=== PATIENT | female | born 1970 | race Caucasian/White ===

== ENCOUNTER 2017-07-02 20:49 | Inpatient (IN) | payer OTHER ==
[~2017-07-02] VITALS: Ht 157.5 cm; Wt 62.0 kg
--- NOTE | ~2017-07-02 | CR72 ---
[facility] A Service of [facility] & [facility] RADIOLOGY TEXT RESULTS PATIENT: RONAN MCKINNEY LOCATION: [facility] [id number] : 72 UNIT #: [id number] AGE: [address]: Rey Driver MD SEX: F ORDER DR: [id number] [facility] [address]. [place], [place] [address] [id number] MR#: [id number] Acc #: [id number] NAME: RONAN MCKINNEY : 1970 SEX: F STUDY DATE/TIME: 07/03/2017 0:27 UNIT: [facility] ROOM: [facility] STUDY DESCRIPTION: CR Chest Single View Portable Attending Physician: Rey Driver M.D. Ordering Physician: Pennie Morgan M.D. Primary Care Physician: Leslye Taylor M.D. MEDICAL IMAGING REPORT This report is preliminary unless electronic signature is present EXAM Chest x-ray 07/03/2017 HISTORY 47-year-old female in the ED complaining of 2-day history of shortness of air and body aches. TECHNIQUE AP portable upright chest x-ray. FINDINGS The lungs are expanded and clear. Heart size and pulmonary vascularity are normal. No visible pulmonary infiltrate or pleural effusion. IMPRESSION Negative chest. Dictated by... Tad Davison M.D. THIS IS AN ELECTRONICALLY VERIFIED REPORT Tad Davison M.D. at 07/03/2017 4:47 PM LYNETTE/sandra TD: 07/03/2017 12:52 JOB #: [id number] MEDICAL IMAGING REPORT Page 1 of 1 COPY
--- NOTE | ~2017-07-02 | DS ---
Unit #: [id number] #: [id number] Patient: RONAN MCKINNEY [id number] [address] [place], [place] [address] [id number] MR#: [id number] NAME: RONAN MCKINNEY ROOM: 473 Age: 47 Sex: F Admission Date: 07/03/2017 : 1970 Discharge Date: 07/05/2017 Attending Physician: Rey Driver M.D. Primary Care Physician: eLslye Taylor M.D. DISCHARGE SUMMARY REASON FOR ADMISSION Right arm abscess. HISTORY OF PRESENT ILLNESS/HOSPITAL COURSE The patient is a 47-year-old female with an underlying history of hepatitis B, C, as well as hypothyroidism and ongoing heroin abuser, began developing a right antecubital fossa region abscess. Over the past several days she also felt feverish while at home. She is a known IV drug user. She did not always use clean needle, in her words, at home. Therefore, she represented for evaluation. She was seen initially in the emergency room, evaluated and consultation was subsequently placed to [facility]. Ultimately the patient underwent I and D. Postoperatively her wound cultures did reveal MRSA, sensitivity to p.o. Bactrim. While here she was placed on IV vancomycin. Initial urinalysis was also positive; however, final urine culture result did not reveal any acute bacterial growth. Blood cultures have otherwise been negative. TSH was noted to be 60.79; however, patient states she has not taken her Synthroid times approximately four weeks. At this point in time, the patient is clinically stable for discharge. She is questioning evaluation by [facility] for evaluation and possibly getting off of IV drugs and/or opiate dependence. We have asked Dr. Pressley for evaluation. After appropriate evaluation from Dr. Pressley, as well as evaluation from care management services, consider may be given for placement into [facility] program for ongoing care. Overall, the long-term prognosis of this patient is very poor. She lacks insight into her overall disease process. She expressed many hesitations on quitting IV drugs. I will give her prescriptions for both Bactrim, as well as for Synthroid 100 mcg p.o. at the time of discharge. Both with the understanding that patient will have appropriate dressing changes while at [facility]. In the event that the patient is discharged home after [facility], she should have home health services follow her at time of discharge. All plans have been reviewed with patient in detail. Again her prognosis is totally dependent on her willingness to proceed and/or comply with routine medical care. FINAL DISCHARGE DIAGNOSES 1. Right antecubital fossa abscess, status post I and D with resultant methicillin resistant Staph aureus growth. 2. Ongoing IV drug abuse. 3. Hypothyroidism. 4. Longstanding history of noncompliant. Unit #: [id number] #: [id number] Patient: RONAN MCKINNEY DISCHARGE MEDICATIONS 1. Synthroid 100 mcg p.o. daily. 2. Bactrim DS 1 tablet p.o. b.i.d. x10 days. DISCHARGE CONDITION Stable. DISCHARGE DISPOSITION To be determined. [facility] versus outpatient care. Dictated by... Rey Driver M.D. SUMMER/julio TD: 07/05/2017 08:59 JOB #: [id number] DISCHARGE SUMMARY Page 1 of 1 X Rey Driver MD X DISCHARGE SUMMARY
--- NOTE | ~2017-07-02 | EKG ---
PATIENT: RONAN MCKINNEY UNIT #: [id number] Ventricular Rate: 89 BPM Atrial Rate: 89 BPM P-R Interval: 136 ms QRS Duration: 68 ms Q-T Interval: 346 ms QTC Calculation(Bezet): 420 ms P [place]: 82 degrees Calculated R [place]: 74 degrees Calculated T [place]: -53 degrees Diagnosis Line: Normal sinus rhythm Diagnosis Line: T wave abnormality, consider anterior ischemia Diagnosis Line: Abnormal ECG Diagnosis Line: When compared with ECG of 04-MAY-2016 01:06, Diagnosis Line: Vent. rate has increased BY 31 BPM Diagnosis Line: Nonspecific T wave abnormality has replaced Diagnosis Line: inverted T waves in Lateral leads Diagnosis Line: Confirmed by RUTH BAEZ MD ([id number]) on Diagnosis Line: 07/03/2017 12:17:10 PM INTERPRETING : CARRIE
--- NOTE | ~2017-07-02 | CO ---
Unit #: [id number] #: [id number] Patient: BRITTNEY TRUJILLO [id number] [facility] [address] [facility]. [place], [place] [address] [id number] I MR#: [id number] NAME: BRITTNEY TRUJILLO ROOM: 473 Age: 47 Sex: F Admission Date: 07/03/2017 : 1970 Attending Physician: Rey Driver M.D. Primary Care Physician: Leslye Taylor M.D. Consultation Date: 07/05/2017 CONSULTATION REPORT REASON FOR CONSULTATION Opiate abuse, IV drug abuse, anxiety, and depression. HISTORY OF PRESENT ILLNESS Ms. Brittney Trujillo is 47-year-old female seen in room 473, bed 1, at [facility]. The patient dressed casually, lying comfortably in bed, seen somewhat sad, depressed, withdrawn, but denied any suicidal or homicidal ideation. Denied any psychotic symptom. The patient reported that she used last intravenous drug, opiate 2 days ago. The patient's vital signs: 98.2, 83, 18, 116/69, oxygen saturation 99%. The patient had I and D done on her arm. Also, has Staph infection. Reported that she will be going to rehab at [facility]. The patient had abscess on right arm. The patient also has a history of hepatitis B, C; hypothyroidism. Has a good support from her sister. The patient currently denied any suicidal or homicidal ideation. Denied any psychotic symptom. PAST PSYCHIATRIC HISTORY Remarkable for history of previous treatment at [facility]. Last treated in 2015. DIAGNOSES 1. Opiate dependence. 2. No history of any suicide attempt. MEDICATION HISTORY The patient is on Synthroid and Bactrim. PAST MEDICAL HISTORY Remarkable for history of right antecubital fossae, abscess, I and D, and MRSA infection, hypothyroidism. FAMILY HISTORY The patient has a good support system from sister. Denied any history of abuse. History of IV drug abuse as mentioned above. Drug of choice opiate. REVIEW OF SYSTEMS Complete review of systems is unremarkable. MENTAL STATUS EXAMINATION General Appearance: The patient dressed casually. Dressed in hospital attire. Attention span/concentration: Fair. Speech: Slow in volume and Unit #: [id number] #: [id number] Patient: BRITTNEY TRUJILLO rate. Oriented in time, place, and person. Mood and affect: Sad, dysphoric, anxious. Thought process: Coherent. Thought content: The patient denied any thoughts of harming self or others but guarded, withdrawn. Recent and remote memory: Poor. Language intact. Fund of knowledge fair. Insight and judgment: Fair to slightly impaired. DIAGNOSES PSYCHIATRIC: Opiate use disorder, severe, F11.20. Mood disorder not otherwise specified, F32.9 SECONDARY: Deferred. MEDICAL: Please refer to H and P. ASSESSMENT AND PLAN 1. Supportive psychotherapy and psychoeducation provided to the patient. 2. Educated about benefits and side effects of medication and course and prognosis of illness. 3. Advised to continue with current medication and follow up at [facility]. The patient has an appointment. Please feel free to call if any question. . Dictated by... Anupam Chao/daniel TD: 07/06/2017 09:20 JOB #: [id number] CONSULTATION REPORT Page 1 of 1 X Gal Pressley MD CONSULTATION REPORT
--- NOTE | ~2017-07-02 | CO ---
Unit #: [id number] #: [id number] Patient: RONAN TRUJILLO [id number] [address] [place], [place] [address] [id number] I MR#: [id number] NAME: RONAN TRUJILLO ROOM: 473 Age: 47 Sex: F Admission Date: 07/03/2017 : 1970 Attending Physician: Rey Driver M.D. Primary Care Physician: Leslye Taylor M.D. Consultation Date: 07/03/2017 CONSULTATION REPORT REASON FOR CONSULTATION Right antecubital fossa abscess. Thank you very much for asking us to see Ms. Trujillo. HISTORY OF PRESENT ILLNESS She is a 47-year-old white female, who has a several year history of heroin use. She states she is also positive for hepatitis B and C. She has had abscesses in both antecubital fossas in the past. This one developed several days ago. They usually drained spontaneously, but this one did not and she came to the emergency room for evaluation. She presents at this time for further evaluation and treatment. ALLERGIES No known medical allergies. MEDICATIONS Synthroid. PAST SURGICAL HISTORY x2, thyroidectomy, removal of wisdom teeth, cholecystectomy. PAST MEDICAL HISTORY Hypothyroidism. SOCIAL HISTORY Positive for tobacco use and recreational heroin use. FAMILY HISTORY Noncontributory. IMMUNIZATION STATUS Unknown. REVIEW OF SYSTEMS Negative except for above. PHYSICAL EXAMINATION GENERAL: Well-developed, well-nourished white female, in no apparent distress. VITAL SIGNS: Afebrile. Vital signs stable. Temperature 99.2. HEENT: Sclerae not icteric. Extraocular movements are intact. NECK: Supple. No thyromegaly or adenopathy. Unit #: [id number] #: [id number] Patient: RONAN TRUJILLO BACK: No CVA or spinous tenderness. ABDOMEN: Flat, soft, nontender. EXTREMITIES: Examination of left antecubital fossa shows some scarring, but no actual abscess. Examination of her right antecubital fossa reveals a fluctuant erythematous indurated tender abscess. DIAGNOSTIC STUDIES LABORATORY RESULTS: Reveal the patient to have a CMP that shows a glucose of 115, potassium of 3, chloride 96, CO2 of 33, calcium 6.9. Her white count 7.3 with hemoglobin 13.2 and hematocrit 40.7. IMPRESSION A 47-year-old white female with right antecubital fossa abscess. We have recommended an incision and drainage. All the risks and benefits have been fully explained to the patient in detail including the risk of bleeding, infection, neurovascular injury, lymphedema, additional surgery, and other risks. She understands completely and requests to proceed. Dictated by... Anupam Horan/zaria TD: 07/03/2017 14:55 JOB #: [id number] CC: [facility] CONSULTATION REPORT Page 1 of 1 X Lupillo Crump MD X CONSULTATION REPORT
--- NOTE | ~2017-07-02 | HP ---
Unit #: [id number] #: [id number] Patient: RONAN MCKINNEY [id number] [address] [address] [id number] I MR#: [id number] NAME: RONAN MCKINNEY ROOM: 14428 Age: 47 Sex: F Admission Date: 07/03/2017 : 1970 Attending Physician: Ysabel Gandhi M.D. Primary Care Physician: Leslye Taylor M.D. HISTORY AND PHYSICAL CHIEF COMPLAINT Right arm abscess. HISTORY This 47-year-old female with hepatitis B, hepatitis C, hypothyroidism, and heroin abuse, is admitted for right arm abscess. Patient developed increasing swelling of her right antecubital region two to three days ago, feeling feverish with headache and jaw discomfort. She presented to this emergency department last evening with a low grade temperature. On examination, she has an abscess in her right AC region. Injects heroin on a daily basis, does not always use clean needles. PAST MEDICAL HISTORY 1. Thyroid cancer, status post thyroidectomy and I-131 ablation. 2. Asthma. 3. Depression. 4. Hepatitis C and hepatitis B. 5. x2. 6. Thyroidectomy. 7. Oral surgery. 8. Cholecystectomy. ALLERGIES None. HOME MEDICATIONS 1. Synthroid 0.15 mg though the patient ran out a month ago. 2. Prozac 20 mg daily. FAMILY HISTORY Positive for CAD. SOCIAL HISTORY The patient lives with her fiance. Injects heroin on a daily basis, does not always use clean needles. Occasionally uses other drugs as well. Smokes between one to one and a half packs per day of tobacco, does not drink alcohol. REVIEW OF SYSTEMS Notable for increasing pain, swelling of the right arm, drug abuse, thyroid cancer, hypothyroidism, asthma, tobacco abuse, depression, hepatitis B and hepatitis C, above mentioned surgeries. All other systems were reviewed and otherwise negative. Unit #: [id number] #: [id number] Patient: RONAN MCKINNEY PHYSICAL EXAMINATION GENERAL: Mildly somnolent but easily arousable 47-year-old female, currently in no acute distress. VITAL SIGNS: Temperature 99.2, pulse 94, respirations 16, blood pressure is 106/74. O2 saturation is 99% on room air. HEENT: Eyes PERRLA. Extraocular muscles are intact. Pharynx is benign. NECK: Supple without adenopathy or thyromegaly. CHEST: Expiratory wheeze. CARDIAC: Normal S1 and S2 without murmur. ABDOMEN: Bowel sounds are present. No hepatosplenomegaly, tenderness or masses. EXTREMITIES: Without pedal edema. No splinter hemorrhages noted over the fingernail beds. Abscess over the right AC region. There are multiple track werner noted over the arms. NEUROLOGIC EXAM: The patient is mildly somnolent but easily arousable. Cranial nerves are intact. She has equal strength throughout. DIAGNOSTIC STUDIES LABORATORY: Admission labs - hematocrit is 40.7, normal white count and platelet count. Cardiac markers are negative. SMA-12 - glucose 115, potassium 3, chloride 96, CO2 33, calcium is 6.9, albumin is 3.2. Blood cultures are pending. IMAGING: Chest x-ray - no acute disease. CARDIOVASCULAR: EKG - normal sinus rhythm, rate 89. Nonspecific ST wave abnormalities. ASSESSMENT 1. Right antecubital fossa abscess secondary to drug abuse. 2. Heroin abuse. 3. Hypothyroidism, status post thyroidectomy for thyroid cancer. Noncompliant with medicines x1 month. 4. Hypokalemia and hypocalcemia. 5. Tobacco abuse and asthma. 6. Hepatitis B and hepatitis C. 7. Nonspecific ST wave abnormalities on EKG, likely related to electrolyte abnormalities. PLANS 1. Replace potassium, will give one amp of calcium and check magnesium. 2. Zosyn and vancomycin for now. Surgical consultation. 3. Medication for opiate withdrawal. 4. Gentle pain control. 5. SCDs for DVT prophylaxis. 6. Social work to see for addiction issues and for follow up for addiction issues at the time of discharge. 7. Check urine tox screen and HIV. Dictated by Ysabel Gandhi M.D. Unit #: [id number] #: [id number] Patient: RONAN MCKINNEY AML/df TD: 07/03/2017 06:03 JOB #: [id number] HISTORY AND PHYSICAL Page 1 of 1 X Ysabel Gandhi MD X HISTORY AND PHYSICAL
--- NOTE | ~2017-07-02 | OR ---
Unit #: [id number] #: [id number] Patient: RONAN MCKINNEY [id number] [address] [address] [id number] I MR#: [id number] NAME: RONAN MCKINNEY ROOM: 473 Date of Procedure: 07/03/2017 Admission Date: 07/03/2017 Surgeon: Chaz Chavez M.D. : 1970 Attending Physician: Rey Driver M.D. Primary Care Physician: Leslye Taylor M.D. OPERATIVE REPORT PREOPERATIVE DIAGNOSIS Right antecubital fossa abscess. POSTOPERATIVE DIAGNOSIS Right antecubital fossa abscess. PROCEDURE PERFORMED Incision and drainage. Aerobic and anaerobic cultures sent. ANESTHESIA General endotracheal anesthesia. ESTIMATED BLOOD LOSS Less than 20 mL. INDICATIONS FOR PROCEDURE A 47-year-old female with right antecubital fossa abscess secondary to IV drug abuse. DESCRIPTION OF PROCEDURE The patient was transported to the operating room from her hospital room and after induction of general endotracheal anesthesia, her right arm was placed in the operating arm board and prepped and draped in usual sterile fashion. She was already on IV antibiotics. Over the most fluctuant area of the abscess cavity, a transverse incision was made and purulent drainage under pressure was released. Cultures were taken. I opened the incision throughout the extent of the abscess cavity and broke down loculations and then vigorously irrigated the area. Hemostasis was obtained and then the wound was packed with gauze, dressing sponges soaked in Betadine, and wrung out. After it was packed, dry sponges were placed over the wound followed by Kerlix and Conor wrap. Sponges and needle counts were correct x3. The patient tolerated the procedure well and transported to recovery in stable condition. She will be readmitted to her hospital room for ongoing antibiotics and initiation of wound care. Findings and postoperative expectations were discussed with her family. Dictated by... Chaz Chavez M.D. RS/modl Unit #: [id number] #: [id number] Patient: RONAN MCKINNEY TD: 07/03/2017 15:44 JOB #: [id number] OPERATIVE REPORT Page 1 of 1 X Chaz Chavez MD PROCEDURE OPERATIVE NOTE
[2017-07-03 01:45] LABS: POC - CKMB <1.0 ng/mL (0.0-7.9); POC - TROPONIN <0.05 ng/mL (<=0.05)
[2017-07-03 02:09] LABS: BASOPHIL% 0.2 % (0-2.5); EOSINOPHIL# 0.5 X10e3 (0-0.7); EOSINOPHIL% 6.5 % (0.0-7.0); HEMATOCRIT 40.7 % (35.0-45.0); HEMOGLOBIN 13.7 gm/dL (12.0-16.0); LYMPHOCYTE# 0.7 X10e3 (1.0-3.5); MEAN CELL VOLUME 93.1 FL (83-96); MEAN CORPUSCULAR HEMOGLOBIN 31.4 PG (28-34); MEAN CORPUSCULAR HGB CONC 33.8 g/dL (30-36); MEAN PLATELET VOLUME 7.3 FL (6.5-11.5); MONOCYTE# 0.2 X10e3 (0-1.0); MONOCYTE% 2.8 % (3.0-12.0); NEUTROPHIL% 81.5 % (40-75); PLATELET COUNT 266 X10e3 (140-420); RED BLOOD COUNT 4.37 X10e (3.90-5.30); RED CELL DISTRIBUTION WIDTH 14.3 % (11.0-15.5); WHITE BLOOD COUNT 7.3 X10e3 (4.0-10.5)
[2017-07-03 02:13] LABS: DIFF IND NO
[2017-07-03 02:33] LABS: ALBUMIN SERUM 3.2 g/dL (3.5-5.0); BILIRUBIN, DIRECT 0.1 mg/dL (0.0-0.2); BILIRUBIN,INDIRECT 0.4 mg/dL (0.0-0.9); BILIRUBIN,TOTAL 0.5 mg/dL (0.2-2.0); BUN/CREATININE RATIO 14.28; CALCIUM SERUM 6.9 mg/dL (8.4-10.2); CREATININE SERUM 0.7 mg/dL (0.6-1.4); GLOM FILT RATE Estimated 104.6 mL/min (>60); PROTEIN TOTAL SERUM 6.9 g/dL (6.0-8.3)
[2017-07-03 10:55] LABS: URINE APPEARANCE CLEAR; URINE BILIRUBIN NEG (NEG); URINE BLOOD NEG (NEG); URINE COLOR YELLOW; URINE GLUCOSE NEG (NEG); URINE KETONE NEG (NEG); URINE LEUKOCYTE ESTERASE 1+ (NEG); URINE NITRATE NEG (NEG); URINE PROTEIN NEG (NEG)
[2017-07-03 10:57] LABS: CULTURE INDICATED? YES; U HYALINE CASTS AUWI 0-2 /[LPF]; URBCS1 AUWI 0-2 /[HPF] (0-2); URINE BACTERIA AUWI NEG (NEGATIVE); URINE SQUAMOUS EPITHELIAL CELL FEW /[HPF]
[2017-07-03 11:30] LABS: AMPHETAMINE POS (NEG); BARBITURATES NEG (NEG); BENZODIAZEPINES NEG (NEG); COCAINE NEG (NEG); MARIJUANA NEG (NEG); OPIATES POS (NEG); TRICYCLIC ANTIDEPRESSANTS NEG (NEG); U METHADONE NEG (NEG)
[2017-07-04 14:04] LABS: HEMATOCRIT 36.2 % (35.0-45.0); MEAN CELL VOLUME 93.4 FL (83-96); MEAN CORPUSCULAR HGB CONC 33.2 g/dL (30-36); MEAN PLATELET VOLUME 7.4 FL (6.5-11.5); RED BLOOD COUNT 3.87 X10e (3.90-5.30); RED CELL DISTRIBUTION WIDTH 14.6 % (11.0-15.5); WHITE BLOOD COUNT 4.9 X10e3 (4.0-10.5)
[2017-07-04 14:25] LABS: BUN/CREATININE RATIO 13.33; CALCIUM SERUM 7.2 mg/dL (8.4-10.2); CREATININE SERUM 0.6 mg/dL (0.6-1.4); GLOM FILT RATE Estimated 110.1 mL/min (>60); MAGNESIUM 1.7 mg/dL (1.6-3.0); POTASSIUM 4.5 mmol/L (3.5-5.1)
[2017-07-05 12:23] LABS: BASOPHIL% 0.8 % (0-2.5); DIFF IND NO; EOSINOPHIL# 0.5 X10e3 (0-0.7); EOSINOPHIL% 9.4 % (0.0-7.0); HEMATOCRIT 38.5 % (35.0-45.0); HEMOGLOBIN 12.6 gm/dL (12.0-16.0); LYMPHOCYTE# 1.4 X10e3 (1.0-3.5); MEAN CELL VOLUME 93.4 FL (83-96); MEAN CORPUSCULAR HEMOGLOBIN 30.5 PG (28-34); MEAN CORPUSCULAR HGB CONC 32.7 g/dL (30-36); MEAN PLATELET VOLUME 6.9 FL (6.5-11.5); MONOCYTE# 0.3 X10e3 (0-1.0); MONOCYTE% 5.6 % (3.0-12.0); NEUTROPHIL# 3.3 X10e3 (1.5-7.1); NEUTROPHIL% 59.2 % (40-75); PLATELET COUNT 340 X10e3 (140-420); RED BLOOD COUNT 4.12 X10e (3.90-5.30); RED CELL DISTRIBUTION WIDTH 14.3 % (11.0-15.5); WHITE BLOOD COUNT 5.5 X10e3 (4.0-10.5)
[2017-07-05 12:57] LABS: BUN/CREATININE RATIO 7.5; CALCIUM SERUM 7.5 mg/dL (8.4-10.2); CREATININE SERUM 0.8 mg/dL (0.6-1.4); GLOM FILT RATE Estimated 89.1 mL/min (>60); POTASSIUM 4.1 mmol/L (3.5-5.1)
[2017-07-05] MEDS ORDERED: SYNTHROID PO (15:22)
[2017-07-05] MEDS ORDERED: BACTRIM DS TAB1 EACH PO (15:24)
== END 2017-07-05 18:23 | disposition home or self-care (01) | DRG 603 ==
LOC: CED 20:49 → CEDOF 07-03 03:18 → C4C 07-03 03:18 → CEDOF 07-03 07:47 → C4C 07-03 08:10
PROVIDERS: Emergency Medicine; Family Medicine; Specialist
PROC: 0H9BXZZ Drainage of Right Upper Arm Skin, External Approach (ICD-10-PCS; principal; 2017-07-03 15:30)
DX: L02.413 Cutaneous abscess of right upper limb (principal); F11.20 Opioid dependence, uncomplicated; B18.1 Chronic viral hepatitis B without delta-agent; B95.62 Methicillin resistant Staphylococcus aureus infection as the cause of diseases classified elsewhere; E89.0 Postprocedural hypothyroidism; B18.2 Chronic viral hepatitis C; E87.6 Hypokalemia; E83.51 Hypocalcemia; R94.31 Abnormal electrocardiogram [ECG] [EKG]; F17.200 Nicotine dependence, unspecified, uncomplicated; F32.9 Major depressive disorder, single episode, unspecified; J45.909 Unspecified asthma, uncomplicated; Z90.49 Acquired absence of other specified parts of digestive tract; Z91.14 Patient's other noncompliance with medication regimen; Z85.850 Personal history of malignant neoplasm of thyroid; Z82.49 Family history of ischemic heart disease and other diseases of the circulatory system
CPT/HCPCS: 71010; 80048; 80076; 80307; 81003; 82553; 83735; 84443; 84484; 84703; 85025; 85027; 87040; 87070; 87075; 87077; 87086; 87186; 87205; 87806; 93005; 94640; 94760; 94761; J0610; J1885; J2250; J2270; J2405; J2543; J2550; J3010; J3370; J3475